=== PATIENT | male | born 1960 | race Caucasian/White ===

== ENCOUNTER 2019-06-28 20:05 | Inpatient (IN) | payer OTHER, SELFPAY ==
[2019-06-28] VITALS (8 sets, daily range): BP systolic 158–168; BP diastolic 86–101; PULSE 92–114; RESP 22–25; TEMP 36.4–37.2; O2SAT 99–100
--- NOTE | ~2019-06-28 | XR_ITS ---
XR chest port-a-cath/central 06/30/2019 12:24 Indication: PICC line placement Procedure: AP portable chest Comparison: 06/28/2019 Findings: Central venous catheter tip in the SVC. Moderate right pleural effusion. Right perihilar ai rspace disease. Left lung clear. Lung apices excluded on the left. There is a healed left clavicular fracture. Impression: 1: Right perihilar airspace disease which may represent atelectasis, asymmetric edema or pneumonia. 2: Moderate right pleural effusion. Reviewed, dictated and finalized at location A. OISOTOPE TECHNICIAN Impression: 1: Right perihilar airspace disease which may represent atelectasis, asymmetric edema or pneumonia. 2: Moderate right pleural effusion.
--- NOTE | ~2019-06-28 | US_ITS ---
US renal BI 07/01/2019 15:00 Procedure: Realtime transabdominal ultrasound of the kidneys and bladder. Indication: Renal failure. Status post left nephrectomy. Comparison: CT dated 08/09/2015 Findings: Right renal echotexture is normal without hydronephrosis, contour deforming mass or renal c alculus. Right kidney measures 12.3 cm in length. Left kidney is surgically absent. Bladder is well d istended. There is mild bladder wall thickening measuring 4.4 mm. Prostate gland measures 40 cc. Impression: 1: Mild bladder wall thickening. Consider cystitis in the appropriate clinical setting. Reviewed, dictated and finalized at location A. MACY SCHEDULER Impression: 1: Mild bladder wall thickening. Consider cystitis in the appropriate clinical setting.
--- NOTE | ~2019-06-28 | XR_ITS ---
EXAMINATION: XR chest 2V DATE: 06/28/2019 21:38 INDICATION: Shortness of breath, cough and weakness TECHNIQUE: frontal and lateral views of the chest were obtained. COMPARISON: Chest radiograph and CT abdomen and pelvis dated 06/24/2019 FINDINGS: Persistent moderate sized right pleural effusion. Pleural-based nodule at the lateral right midlung z one suspicious for metastatic disease. Left lung remains clear. No pneumothorax or left-sided pleural effusion. The cardiomediastinal silhouette is normal. Mild to moderate thoracic spondylosis. Old hea led left clavicle fracture deformity and old bilateral rib fractures. IMPRESSION: 1. Unchanged moderate sized right pleural effusion. 2. Pleural-based nodular opacity at the lateral right midlung zone which based on prior CT findings m ost concerning for metastatic disease. Reviewed, dictated and finalized at location A. CARGO GROUND OPERATIONS SUPERVISOR IMPRESSION: 1. Unchanged moderate sized right pleural effusion. 2. Pleural-based nodular opacity at the lateral right midlung zone which based on prior CT findings most concerning for metastatic disease.
--- NOTE | ~2019-06-28 | XR_ITS ---
EXAMINATION: XR chest port-a-cath/central DATE: 07/02/2019 13:46 INDICATION: Port placement. TECHNIQUE: A single frontal view of the chest was obtained. COMPARISON: Chest single view 07/01/2019 FINDINGS: There is a moderate-sized right pleural effusion. There are airspace opacities in right randell g with a basilar predominance, likely atelectasis. There is mild atelectasis at left lung base. No pn eumothorax. The heart size is normal. There is a right internal jugular port tip in superior vena cav a. A left internal jugular central venous catheter is seen with tip in the superior vena cava. There is an old healed fracture of left clavicle. IMPRESSION: 1. Port tip in superior vena cava. No pneumothorax. 2. Unchanged moderate-sized right pleural effusion. 3. Worsened airspace opacities in right lung and at left lung base, likely atelectasis. Reviewed, dictated and finalized at location A. TANCE ABUSE COUNSELOR IMPRESSION: 1. Port tip in superior vena cava. No pneumothorax. 2. Unchanged moderate-sized right pleural effusion. 3. Worsened airspace opacities in right lung and at left lung base, likely atel ectasis.
--- NOTE | ~2019-06-28 | US_ITS ---
EXAMINATION: US thoracentesis DATE: 07/01/2019 14:52 INDICATION: pleural effusion TECHNIQUE: The procedure and its risks, benefits, and alternatives were discussed with the patient. P otential risks discussed included bleeding, infection, and pneumothorax. The patient understood the r isks and agreed to proceed. The skin was prepped and draped in sterile fashion. 1% lidocaine was used for local anesthesia. Under ultrasound guidance, a 5 Fr catheter with trochar was advanced into the right pleural effusion. Fluid was aspirated. The catheter was removed, and a dressing was applied. Th ere were no immediate complications. FINDINGS: Ultrasound images demonstrate a right pleural effusion and the catheter within the fluid. IMPRESSION: 1. Successful ultrasound-guided thoracentesis yielding 1000 mL of serosanguineous fluid. Reviewed, dictated and finalized at location A. D SUPERVISOR IMPRESSION: 1. Successful ultrasound-guided thoracentesis yielding 1000 mL of serosanguine ous fluid.
--- NOTE | ~2019-06-28 | CT_ITS ---
EXAMINATION: CT chest wo con DATE: 06/30/2019 15:21 INDICATION: Confirm JACC line placement/Pulmonary congestion TECHNIQUE: Computed tomography (CT) of the chest was performed without intravenous contrast. Addition al 3D reconstructions utilizing coronal maximum intensity projection (MIP) were performed. Automated exposure control and iterative reconstruction technique were employed. The dose-length product was 17 1.89 mGy-cm. COMPARISON: 06/18/2019 FINDINGS: Left internal jugular central venous catheter with distal tip at the midsuperior vena cava. Interval increase in size of a now moderate to large right pleural effusion. Right middle and lower lobe colla pse and compressive atelectasis in the dependent right upper lobe. Multiple pleural-based nodules and masses along both the parietal and visceral pleura concerning for metastatic disease. There is a 1.8 x 1.3 cm perihilar mass at the posterior medial lingula. Mild dependent atelectasis in the left lowe r lobe. No pulmonary edema, pneumothorax or left-sided pleural effusion. Heart size is normal. No per icardial effusion. Atherosclerotic coronary artery calcification and likely stenting along the left a nterior descending coronary artery. Right paraspinal 8.0 x 5.3 x 1.7 cm intramuscular lipoma in the r ight trapezius muscle. Postoperative change of prior left nephrectomy and adrenalectomy. Moderate tho racic spondylosis. Several old healed left-sided rib fractures. No lytic or blastic bone lesions iden tified. IMPRESSION: 1. Left internal jugular central venous catheter with distal tip in the midsuperior vena cava. 2. Interval increase in size of a now moderate to large right pleural effusion with multiple right-si ded pleural-based nodules and masses consistent with metastatic disease. 3. 1.8 x 1.3 cm perihilar mass in the lingula also consistent with metastatic disease. Reviewed, dictated and finalized at location A. IDENT COLLEGE OR UNIVERSITY IMPRESSION: 1. Left internal jugular central venous catheter with distal tip in the midsupe rior vena cava. 2. Interval increase in size of a now moderate to large right pleural effusion with multiple right-sided pleural-based nodules and masses consistent with meta static disease. 3. 1.8 x 1.3 cm perihilar mass in the lingula also consistent with metastatic d isease.
--- NOTE | ~2019-06-28 | XR_ITS ---
EXAMINATION: XR chest 1V DATE: 07/01/2019 14:18 INDICATION: Right pleural effusion status post thoracentesis. TECHNIQUE: A single frontal view of the chest was obtained. COMPARISON: Chest single view 06/30/2019 FINDINGS: There is a moderate-sized right pleural effusion. There is a nodule in right midlung zone. No pneumothorax. The heart size is normal. A left internal jugular central venous catheter is seen wi th tip in the superior vena cava. There are old healed left rib fractures. IMPRESSION: 1. Moderate-sized right pleural effusion with improvement status post thoracentesis. 2. Nodule in right midlung zone, consistent with metastatic disease. Reviewed, dictated and finalized at location A. BALL CLUB MANAGER IMPRESSION: 1. Moderate-sized right pleural effusion with improvement status post thoracent esis. 2. Nodule in right midlung zone, consistent with metastatic disease.
--- NOTE | ~2019-06-28 | XR_ITS ---
. EXAMINATION: XR fl guide central line place DATE: 07/02/2019 13:11 INDICATION: Port placement. TECHNIQUE: A single intraoperative fluoroscopic view of the chest was obtained. I was not present. Fl uoroscopy exposure time is 28 seconds. COMPARISON: Chest single view 07/01/2019 FINDINGS: There is a right internal jugular port with tip not included, but at least to the superior vena cava. There is a left internal jugular central venous catheter with tip not included, but at joe st to the superior vena cava. IMPRESSION: 1. Right internal jugular port placement. Reviewed, dictated and finalized at location A. LACER
--- NOTE | 2019-06-28 20:31 | ECG_ITS ---
Measurements Intervals [place] Rate: 109 P: 33 GA: 132 QRS: -49 QRSD: 157 T: 125 QT: 381 QTc: 514 Interpretive Statements SINUS TACHYCARDIA LEFT AXIS DEVIATION LEFT BUNDLE BRANCH BLOCK BASELINE ARTIFACT- I, II, AVR ABNORMAL ECG Electronically Signed On 06-29-2019 6:56:49 [place] TANNER by Morris Webber D.O.
--- NOTE | 2019-06-28 21:05 | ED.GENADULT ---
HPI - General Adult General Chief complaint: Weakness Stated complaint: weak Time Seen by Provider: 06/28/19 20:57 Source: patient and RN notes reviewed Mode of arrival: EMS Limitations: no limitations History of Present Illness HPI narrative: Pt is a 58 y/o male who presents to the ED, via EMS, with c/o generalized weakness which began prior to arrival. Pt states he has been in and out of the hospital since 4 days ago. He reports dyspnea, BLE edema for 4 days, chest pain, and a productive cough, but denies a fever. Pt states he has been diagnosed with cancer and is seeing an oncologist at [facility] currently for a treatment plan. 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 He denies being on any anticoagulants, chemotherapy, or oxygen at home. Pt also reports a PMHx of blood clots. Location: lower extremity (generalized weakness) Radiation: non-radiation Associated symptoms: chest pain, cough (productive), shortness of breath and other (BLE edema) Related Data Allergies Allergy/AdvReac Type Severity Reaction Status Date / Time No Known Drug Allergies Allergy Unknown Verified 08/07/15 15:46 Review of Systems Review of Systems: Narrative: CONSTITUTIONAL: Reports generalized weakness. Denies a fever. CARDIOVASCULAR: Reports BLE edema and chest pain. RESPIRATORY: Reports productive cough. All systems reviewed & are unremarkable except as noted in HPI and below Genitourinary: Genitourinary: Denies hematuria and Denies urinary frequency Musculoskeletal: Musculoskeletal: Denies numbness Neurologic: Denies dizziness and Denies syncope REPLACED BY [facility] Past Medical History Medical History (Updated 06/29/19 @ 00:21 by Lily Petit MD) Anxiety and depression (Acute) CKD (chronic kidney disease) stage 4, GFR 15-29 ml/min (Acute) HTN (hypertension) (Acute) Renal cell carcinoma (Acute) Family History Family History (Updated 06/24/19 @ 09:48 by Leyla Puga RN) Father Cancer Mother Cancer Social History Social History (Updated 06/28/19 @ 21:35 by Ros Mchugh) Smoking status: Former smoker Tobacco type: cigarettes Smoking end date: 08/05/15 Gender identity (if verbalized by the patient): Male Comments PCP: Unknown Exam Narrative: Exam Narrative: GENERAL: Thin in appearance and frail. HEAD: Normocephalic, atraumatic. EYES: PERRLA and EOMI. ENT: Nares clear, no rhinorrhea or epistaxis. Dry mucous membranes. NECK: Supple. CHEST: Mild diffuse distension with coarse rhonchi and wheezing. Tachypnea. Nasal cannula in place. HEART: Tachycardic rate and rhythm. No murmur heard. Normal peripheral pulses. ABDOMEN: Soft, nontender, nondistended, normal active bowel sounds. EXTREMITIES: Normal range of motion. Bilateral lower extremity edema, pitting to mid shins, 2+ SKIN: Warm, dry, no rash. Skin is pale. NEURO: No focal deficits. Alert and oriented Course Vital Signs Vital signs: Vital Signs Temperature 36.8 C 06/28/19 20:09 Pulse Rate 114 H 06/28/19 20:09 Respiratory Rate 23 H 06/28/19 20:09 Blood Pressure 167/100 H 06/28/19 20:09 Pulse Oximetry 100 06/28/19 20:09 Temperature 36.4 C 06/28/19 23:49 Pulse Rate 95 06/28/19 23:55 Respiratory Rate 25 H 06/28/19 23:55 Blood Pressure 158/86 H 06/28/19 23:55 Pulse Oximetry 100 06/28/19 23:55 Medical Decision Making MDM Narrative Medical decision making narrative: Pt presented for evaluation of cough, weakness. Pt presents septic, no hypotension. IV access obtained and labs drawn. Pt given 1L of fluid as concerned for CHF concurrently given LE edema and history of cancer. Pt given broad spectrum antibiotics. He has a cancer history but reports he has not established with a heme/onc doctor yet. Pt without focal neurological deficits on exam. No headache. His labs are consistent with acute heart failure and also pneumonia given clinical symptoms. No lactic acidosis. He has CKD. BNP significantly eleva
[2019-06-28] MEDS: SODIUM CHLORIDE 0.9% IV 1,000 ML 999 ML IV CONT (21:41)
--- NOTE | 2019-06-28 22:11 | PC.NURSE ---
PATIENT REFUSED STRAIGHT CATH AT THIS TIME .
[2019-06-28 22:15] LABS: Basophils Absolute Auto 0.1 K/mm3 (0.0-0.1); Basophils Percent Auto 0.8 % (0.2-1.2); Eosinophils Absolute Auto 0.3 K/mm3 (0-0.3); Eosinophils Percent Auto 2.8 % (0-4.4); Hematocrit 35.8 % (42.0-52.0); Hemoglobin 10.5 g/dL (14.0-18.0); Immature Granulocyte Absolute 0.13 K/mm3 (0.00-0.031); Immature Granulocyte Percent A 1.3 % (0-0.5); Lymphocytes Absolute Auto 1.45 K/mm3 (0.9-3.2); Mean Corpuscular HGB Conc 29.3 g/dl (32-36); Mean Corpuscular Hemoglobin 25.2 pg (26-34); Mean Corpuscular Volume 86.1 fl (80-100); Mean Platelet Volume 8.4 fl (7.4-10.4); Monocytes Absolute Auto 1.1 K/mm3 (0.1-0.6); Monocytes Percent Auto 10.5 % (2.6-8.5); Neutrophils Absolute Auto 7.3 K/mm3 (1.3-6.7); Neutrophils Percent Auto 70.6 % (45.5-73.1); Platelet Count Result 404 k/mm3 (150-375); Red Blood Count 4.16 M/mm3 (4.6-6.20); Red Cell Distribution Width 20.8 % (11.5-14.5); White Blood Count 10.3 K/mm3 (4.5-10.0)
[2019-06-28 22:28] LABS: INR 2.1; Prothrombin Time 22.9 Seconds (11.1-14.7)
[2019-06-28 22:29] LABS: Partial Thromboplastin Time 75.9 SECONDS (22.3-36.8)
[2019-06-28 22:30] LABS: Lactic Acid Reflex 1.3 mmol/L (0.7-2.1)
[2019-06-28 22:36] LABS: NT Pro B Type Natriuretic Pept 20100 PG/ML (5-100)
[2019-06-28 22:38] LABS: Troponin I < 0.012 ng/mL (0.000-0.034)
[2019-06-28 22:42] LABS: Alanine Aminotransferase 10 U/L (4-50); Albumin Level 2.9 g/dL (3.5-5.1); Alkaline Phosphatase 118 U/L (38-126); Aspartate Amino Transferase 24 U/L (17-59); Bilirubin,Total 0.2 mg/dL (0.2-1.3); Blood Urea Nitrogen 26 mg/dL (9-20); Calcium 8.9 mg/dL (8.4-10.2); Carbon Dioxide 15 mmol/L (22-30); Chloride 112 mmol/L (98-107); Estimated CRCL calculation 23 ml/min; Estimated Glomerular Filt Rate 22; Glucose 120 mg/dL (75-110); Potassium 3.8 mmol/L (3.4-5.0); Sodium 139 mmol/L (137-145)
[2019-06-28 22:44] LABS: CRP 16.6 mg/dL (<1.0)
[2019-06-29] VITALS (20 sets, daily range): BP systolic 159–181; BP diastolic 82–98; PULSE 73–89; RESP 18–22; TEMP 36.4–36.7; O2SAT 96–100; BMI 23.0
--- NOTE | 2019-06-29 | ECHO_ITS ---
Patient Info Name: Andi Wharton Age: 58 years : 1960 Gender: Male Ht: 72 in Wt: 169 lbs BSA: 1.97 m2 HR: 89 bpm BP: 181 / 98 mmHg Heart Rhythm: Sinus Rhythm Technical Quality: Good Exam Date: 06/29/2019 7:20 AM Exam Location: [facility] Patient Status: Inpatient Admit Date: 06/28/2019 Staff Ordering Physician: Paloma Caldera DO Computing Architect: Elvis Daniel RDCS, RT Attending Provider: Paloma Caldera DO Referring Physician: Sunny Cochran MD; Exam Type: CA echo doppler color flow Study Info Indications I50.9 - Heart failure, unspecified Complete two-dimensional, color flow and Doppler transthoracic echocardiogram is performed with contrast to opacify the left ventricle and to improve the deliniation of the left ventricle endocardial borders. Summary 1. Left ventricular chamber dimension is normal. 2. Left ventricular systolic function is normal, estimated at 50-55%, measured 55%. 3. There is moderately increased left ventricular wall thickness. 4. Left ventricular septal wall motion is abnormal with septal motion related to bundle branch block. 5. The left ventricular diastolic function is grade I diastolic dysfunction. 6. Global longitudinal strain is moderately decreased at -12 %, suggesting early systolic dysfunction. 7. No pulmonary hypertension, estimated pulmonary arterial systolic pressure is 31 mmHg. 8. No significant valve disease. 9. Rhythm is NSR w/ BBB. Left Ventricle Left ventricular chamber dimension is normal. Left ventricular systolic function is normal, estimated at 50-55%, measured 55%. There is moderately increased left ventricular wall thickness. Left ventricular septal wall motion is abnormal with septal motion related to bundle branch block. The left ventricular diastolic function is grade I diastolic dysfunction. Global longitudinal strain is moderately decreased at -12 %, suggesting early systolic dysfunction. Right Ventricle Right ventricular chamber dimension is normal. Right ventricular systolic function is normal. Left Atria Left atrial chamber dimension is normal. Right Atria Right atrial chamber dimension is normal. Aortic Valve The aortic valve is trileaflet. There is no aortic valve sclerosis. There is no aortic valve stenosis. There is no aortic valve regurgitation. Pulmonic Valve The pulmonic valve is normal. There is no pulmonic valve stenosis. There is no pulmonic regurgitation. Mitral Valve The mitral valve has normal leaflets. There is no mitral valve stenosis. There is no mitral valve regurgitation. Tricuspid Valve The tricuspid valve leaflets are normal. There is no significant tricuspid valve stenosis. There is trace tricuspid valve regurgitation. No pulmonary hypertension, estimated pulmonary arterial systolic pressure is 31 mmHg. Pericardium/Pleural The pericardium appears normal. There is no pericardial effusion. Inferior Vena Cava Normal inferior vena cava with >50% collapse upon inspiration consistent with Empty right atrial pressure, 10 mmHg. Aorta The aortic root size at the sinus of Valsalva is normal. The prox ascending aorta size is normal. Left Ventricular Outflow Tract Name Value Normal LVOT 2D
--- NOTE | 2019-06-29 00:09 | ADMGEN ---
This patient, Andi Wharton, was admitted to Medical Room 248-01. Patient/family oriented to hospital policies and general routines including ID bracelet, bed and alarms, visiting hours, pain management, procedures, bathroom and other care routines, personal items, smoking policy, room service/diet, and visiting hours. Valuables list has been completed. Information on how to activate the Rapid Response Team has been discussed. Patient/Family are encouraged to report perceived risks to care and to ask questions if they do not understand what they are told or what they should do.
[2019-06-29] MEDS: METOPROLOL TARTRATE INJ 5 MG/5 ML VIAL IV PUSH (05:13)
[2019-06-29 07:21] LABS: Add Urine Microscopic? NO; Appearance Urine Clear (Clear); Bilirubin Urine Negative (Negative); Blood Urine Negative (Negative); Color Urine Yellow (Yellow); Glucose Urine UA Negative (Negative); Ketones Urine Negative (Negative); Leukocyte Esterase Ur Negative LEU/UL (NEGATIVE); Nitrate Urine Negative (Negative); Protein Urine Negative (Negative); Specific Grav Ur 1.013 (1.001-1.035); Urobilinogen Urine Negative mg/dL (<2.0)
[2019-06-29 08:17] LABS: INR 2.5; Prothrombin Time 26.2 Seconds (11.1-14.7)
[2019-06-29 08:18] LABS: Basophils Absolute Auto 0.1 K/mm3 (0.0-0.1); Basophils Percent Auto 1.4 % (0.2-1.2); Eosinophils Absolute Auto 0.3 K/mm3 (0-0.3); Eosinophils Percent Auto 3.4 % (0-4.4); Hematocrit 36.9 % (42.0-52.0); Hemoglobin 10.2 g/dL (14.0-18.0); Immature Granulocyte Absolute 0.07 K/mm3 (0.00-0.031); Lymphocytes Absolute Auto 1.25 K/mm3 (0.9-3.2); Lymphocytes Percent Auto 17.1 % (18.3-44.2); Mean Corpuscular HGB Conc 27.6 g/dl (32-36); Mean Corpuscular Hemoglobin 25.8 pg (26-34); Mean Corpuscular Volume 93.2 fl (80-100); Mean Platelet Volume 8.5 fl (7.4-10.4); Monocytes Absolute Auto 0.7 K/mm3 (0.1-0.6); Neutrophils Absolute Auto 4.9 K/mm3 (1.3-6.7); Neutrophils Percent Auto 67.1 % (45.5-73.1); Partial Thromboplastin Time 59.2 SECONDS (22.3-36.8); Platelet Count Result 274 k/mm3 (150-375); Red Blood Count 3.96 M/mm3 (4.6-6.20); Red Cell Distribution Width 21.6 % (11.5-14.5); White Blood Count 7.3 K/mm3 (4.5-10.0)
[2019-06-29 08:20] LABS: Alanine Aminotransferase 7 U/L (4-50); Albumin Level 2.7 g/dL (3.5-5.1); Alkaline Phosphatase 107 U/L (38-126); Aspartate Amino Transferase 22 U/L (17-59); Bilirubin,Total 0.2 mg/dL (0.2-1.3); Blood Urea Nitrogen 24 mg/dL (9-20); Calcium 8.6 mg/dL (8.4-10.2); Carbon Dioxide 12 mmol/L (22-30); Chloride 114 mmol/L (98-107); Estimated CRCL calculation 30 ml/min; Estimated Glomerular Filt Rate 24; Glucose 99 mg/dL (75-110); Potassium 4.2 mmol/L (3.4-5.0); Sodium 137 mmol/L (137-145)
[2019-06-29 08:33] LABS: Anisocytosis 1+ (NORMAL); Platelet Estimate Adequate (Adequate)
--- NOTE | 2019-06-29 08:42 | PM.IMHP ---
H&P: HPI History of Present Illness Chief complaint: CHF exacerbation,metastatic cancer Narrative: Andi Wharton is a 58 year old male with a past medical history of CHF, renal carcinoma s/p nephrectomy at [facility] last year who presented to the ER after having reports of worsening shortness of breath and increased dizziness. He was recently at [facility] for 4 days and was discharged on 06/25/19. Records have been requested. Per notes seen in the chart from 06/25/19 at [facility], he was diagnosed with a PE via VQ scan and was started on Warfarin. It is unclear on what dose he is on and after speaking with his pharmacy ([facility] in [place]), he was not discharged on Warfarin. He was diagnosed with renal cell carcinoma last year and also had a nephrectomy at [facility]. He denies ever following up with an oncologist and it is difficult to determine why he did not. His chest x-ray showed chest x-ray showed an unchanged moderate pleural effusion and a pleural based nodule lateral right midlung zone which based on prior CT findings most concerning for metastatic disease. Per [facility]'s notes, a CT has showed that the cancer has metastasized. He has also reportedly had a 100 lb weight loss in the past 4 months. While admitted at [facility], an appointment was made for the patient with an oncologist, Dr. Llanos for yesterday on 06/28/19, but he presented to our ER instead. Patient was discharged with home health and required O2 on discharge. Dr. Zhao has been consulted and will wait for his recommendations before deciding if the patient needs to be seen by cardiology and nephrology. Due to his cancer metastasizing, increased weakness, and 100 lb weight loss, he would be appropriate for palliative/hospice care which was discussed with the patient. At this time, he would like to see what Dr. Zhao's recommendations are and then will speak with his son. He did decided to change his Code Status to a DNR. He designated his son Elieser Wharton ([phone]) as his surrogate decision maker. I spoke with his son and he reports that his dad goes to different hospitals a few times a year, but never follows up with any physicians as he is instructed. Per his son, the patient has rapidly declined. Review of Systems Review of Systems: Narrative: REVIEW OF SYSTEMS: General: Denies pain, fever, chills. HEENT: Denies congestion, sore throat. Respiratory: Reports: SOB with exertion. Denies hemoptysis, SOB at rest, wheezing. Cardiology: Reports: Edema, lightheadeness. Denies: Chest pain, diaphoresis, palpitations. Gastrointestinal: Denies: Nausea, vomiting, constipation, diarrhea, abdominal pain. Genitourinary: Denies: Burning, hematuria. Integumentary: Reports: No symptoms Musculoskeletal: Reports: Generalized weakness Neurology: Reports: Dizziness Psychiatric: Reports: Anxiety and depression. ROS Comment: Except as documented, all other systems reviewed and negative. [facility] Past Medical History Medical History (Updated 06/29/19 @ 16:41 by KRYSTAL Ge) Acute exacerbation of CHF (congestive heart failure) (Acute) Anxiety and depression (Acute) CKD (chronic kidney disease) stage 4, GFR 15-29 ml/min (Acute) HTN (hypertension) (Acute) Renal cell carcinoma (Acute) Surgical History Surgical History (Updated 06/29/19 @ 10:24 by KRYSTAL Ge) History of nephrectomy (Acute) Family History Family History (Updated 06/29/19 @ 00:27 by Patt Hayes RN) Father Acute myocardial infarction Cancer Chronic obstructive pulmonary disease Mother Acute myocardial infarction Cancer Diabetes mellitus Sibling Cerebrovascular accident Diabetes mellitus Social History Social History (Updated 06/29/19 @ 10:29 by KRYSTAL Ge) Smoking packs per day: 1 Smoking cigarettes per day: 20.0 Years smoked: 40 Smoking pack-years: 40.00 Smoking status: Former smoker Tobacco type: cigarettes Smoking end da
[2019-06-29] MEDS: ASPIRIN 81 MG CHEWABLE TABLET PO (09:22)
[2019-06-29] MEDS: PANTOPRAZOLE 40 MG TABLET PO (09:23)
[2019-06-29] MEDS: METOPROLOL TARTRATE 50 MG TAB PO ×2 (09:23→20:39)
[2019-06-29] MEDS: ALPRAZOLAM 0.5 MG TABLET 1 MG PO (10:32)
[2019-06-29] MEDS: POLYSACCHARIDE IRON COMPLEX 150 MG CAPSULE PO (10:33)
[2019-06-29] MEDS: ALBUMIN HUMAN 25% 12.5 GM/50ML 50 ML IVPB (10:34)
[2019-06-29] MEDS: FUROSEMIDE INJ 40 MG/4 ML VIAL 20 MG IV PUSH (12:22)
[2019-06-29] MEDS: ALBUTEROL SULFATE NEB 2.5 MG/0.5 ML INH INHALATION ×2 (15:23→20:01)
[2019-06-29] MEDS: IPRATROPIUM BR 0.02% INH SOLN 0.5 MG/2.5 ML VIAL INHALATION ×2 (15:24→20:01)
--- NOTE | 2019-06-29 19:38 | CONS_ITS ---
DATE OF CONSULTATION: 06/29/2019 REFERRING PHYSICIAN: Paloma Caldera D.O. REASON FOR CONSULTATION: Metastatic renal cell carcinoma. HISTORY OF PRESENTING ILLNESS: This is a pleasant 58-year-old male who was diagnosed to have renal cell carcinoma, status post nephrectomy done in June 2018. The patient did not keep followup with the surgeon. He now has been losing weight and lost almost 100 pound in last 4 months duration. He has been complaining of poor appetite. He has been having some lightheadedness and dizziness with occasional headache without any seizures. He was admitted to [facility] with increasing shortness of breath and dizziness. CT scan was performed over there and according to the chart review, he was found to have lung and liver metastasis. I do not see CT report for my review. The patient denies any bleeding and bruising. Denies any diarrhea and constipation. He has been having swelling in the bilateral lower extremities with difficulty walking. He was set to be seen by Dr. Llanos for oncology consultation, but ended up admitting into the hospital. REVIEW OF SYSTEMS: As per HPI, otherwise negative. 12-point review of system was reviewed. PAST MEDICAL HISTORY: Renal cell carcinoma, status post nephrectomy in June 2018, congestive heart failure, depression, anxiety, chronic kidney stage 4 disease, hypertension. PAST SURGICAL HISTORY: Status post nephrectomy. FAMILY HISTORY: Positive for COPD and heart disease in father and mother. No history of malignancy. SOCIAL HISTORY: The patient smokes 1 pack per day for 40 years duration, quit in January 2018. The patient used to drink 1 whiskey and beers on a daily basis, but quit again last year. 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 He has not been working for the last 1 year duration since the diagnosis of kidney cancer. HOME MEDICATIONS: Reviewed. ALLERGIES: REVIEWED. PHYSICAL EXAMINATION: GENERAL: This patient is a quite tired looking male, in no apparent distress. Alert and oriented x3. VITAL SIGNS: Per nursing note. HEENT: Normocephalic, atraumatic. Clear oropharynx. LUNGS: Clear to auscultation bilaterally. CARDIOVASCULAR: Regular rate and rhythm. No murmurs. ABDOMEN: Soft, nontender, nondistended. Bowel sounds are positive in all 4 quadrants. No hepatosplenomegaly. EXTREMITIES: 2+ bilateral pitting edema. NEUROLOGIC: Grossly intact. LABORATORY DATA: WBC 7.3, hemoglobin 10.2, platelet 274,000. INR 2.5. Creatinine 2.7, total protein 6.0. ASSESSMENT AND PLAN: Metastatic renal cell carcinoma. The patient was initially diagnosed to have early stage cancer and had nephrectomy done at [facility] in June 2018. According to the chart review, the patient was found to have lung and liver metastasis on the CT scan performed at [facility]. Chest x-ray was done here that showed unchanged moderate-sized pleural effusion and pleural based nodular density in the mid lung zone. This is concerning for metastatic disease. I have discussed this finding with the patient in detail. The patient is a 58-year-old unfortunate man with metastatic disease. I plan to perform a PET-CT upon discharge. In the meantime, I will ask Dr. Chavira for MediPort placement for immunotherapy treatment hopefully soon as an outpatient. My plan will be to start him on immunotherapy with ipilimumab and nivolumab as an outpatient. I have discussed all these in detail with the patient. The patient will follow up with me in my office. I have provided him my office information. Terra I MT: Viridiana
[2019-06-29] MEDS: MIRTAZAPINE 15 MG TABLET PO (20:40)
[2019-06-29] MEDS: TEMAZEPAM 15 MG CAPSULE PO (20:40)
[2019-06-29] MEDS: ALPRAZOLAM 0.5 MG TABLET PO (20:44)
[2019-06-30] VITALS (20 sets, daily range): BP systolic 145–161; BP diastolic 79–91; PULSE 74–92; RESP 18–24; TEMP 36.2–36.3; O2SAT 93–100
[2019-06-30] MEDS: ALBUTEROL SULFATE NEB 2.5 MG/0.5 ML INH INHALATION ×4 (02:18→21:47)
[2019-06-30] MEDS: IPRATROPIUM BR 0.02% INH SOLN 0.5 MG/2.5 ML VIAL INHALATION ×4 (02:18→21:47)
[2019-06-30 06:04] LABS: Basophils Absolute Auto 0.1 K/mm3 (0.0-0.1); Eosinophils Absolute Auto 0.4 K/mm3 (0-0.3); Eosinophils Percent Auto 3.9 % (0-4.4); Hematocrit 30.3 % (42.0-52.0); Immature Granulocyte Absolute 0.13 K/mm3 (0.00-0.031); Immature Granulocyte Percent A 1.4 % (0-0.5); Lymphocytes Absolute Auto 1.38 K/mm3 (0.9-3.2); Lymphocytes Percent Auto 14.8 % (18.3-44.2); Mean Corpuscular HGB Conc 29.7 g/dl (32-36); Mean Corpuscular Hemoglobin 25.1 pg (26-34); Mean Corpuscular Volume 84.4 fl (80-100); Mean Platelet Volume 8.8 fl (7.4-10.4); Monocytes Absolute Auto 0.8 K/mm3 (0.1-0.6); Monocytes Percent Auto 8.3 % (2.6-8.5); Neutrophils Absolute Auto 6.6 K/mm3 (1.3-6.7); Neutrophils Percent Auto 70.6 % (45.5-73.1); Platelet Count Result 350 k/mm3 (150-375); Red Blood Count 3.59 M/mm3 (4.6-6.20); Red Cell Distribution Width 20.5 % (11.5-14.5); White Blood Count 9.3 K/mm3 (4.5-10.0)
[2019-06-30 06:10] LABS: INR 2.3; Prothrombin Time 25.1 Seconds (11.1-14.7)
[2019-06-30 06:11] LABS: Partial Thromboplastin Time 73.7 SECONDS (22.3-36.8)
[2019-06-30 06:21] LABS: Alanine Aminotransferase 10 U/L (4-50); Albumin Level 2.7 g/dL (3.5-5.1); Alkaline Phosphatase 100 U/L (38-126); Aspartate Amino Transferase 18 U/L (17-59); Bilirubin,Total 0.2 mg/dL (0.2-1.3); Blood Urea Nitrogen 27 mg/dL (9-20); Calcium 8.6 mg/dL (8.4-10.2); Carbon Dioxide 15 mmol/L (22-30); Chloride 110 mmol/L (98-107); Estimated CRCL calculation 28 ml/min; Estimated Glomerular Filt Rate 22; Glucose 130 mg/dL (75-110); Potassium 3.9 mmol/L (3.4-5.0); Sodium 136 mmol/L (137-145)
[2019-06-30] MEDS: POLYSACCHARIDE IRON COMPLEX 150 MG CAPSULE PO (08:40)
[2019-06-30] MEDS: PANTOPRAZOLE 40 MG TABLET PO (08:41)
[2019-06-30] MEDS: METOPROLOL TARTRATE 50 MG TAB PO ×2 (08:41→20:39)
[2019-06-30] MEDS: ASPIRIN 81 MG CHEWABLE TABLET PO (08:41)
--- NOTE | 2019-06-30 09:36 | PM.IMPN ---
Progress Note: A&P Assessment and Plan (1) Pleural effusion: Code(s): J90 - Pleural effusion, not elsewhere classified Status: Acute Assessment and Plan: 06/30/19: Patient's chest x-ray showed 1: Right perihilar airspace disease which may represent atelectasis, asymmetric edema or pneumonia. 2: Moderate right pleural effusion. A CT of his chest without contrast was ordered and showed 1. Left internal jugular central venous catheter with distal tip in the midsuperior vena cava. 2. Interval increase in size of a now moderate to large right pleural effusion with multiple right-sided pleural-based nodules and masses consistent with metastatic disease. 3. 1.8 x 1.3 cm perihilar mass in the lingula also consistent with metastatic disease. Will plan to hold his Warfarin tonight and order an ultrasound guided thoracentensis for tomorrow morning. His INR is 2.3 and per radiology, it needs to be around 1.5. Will keep him NPO at midnight and repeat PT/INR in the am. This was all explained to the patient in great detail and that the fluid will most likely return. He stated understanding and would like to proceed. (2) Acute exacerbation of CHF (congestive heart failure): Qualifiers: Heart failure type: unspecified Qualified Code(s): I50.9 - Heart failure, unspecified Code(s): I50.9 - Heart failure, unspecified Status: Acute Assessment and Plan: 06/29/19: BNP is noted to be 20,100. He is on Lasix 20 mg PO daily and has 3-4+ lower extremity pitting edema. Will plan to give the patient IV Lasix X 1 and albumin today. An echo from May shows and EF of 35-40%. Will plan to continue his Metoprolol and consider a cardiology consult in the morning depending on how aggressive the patient wants his treatment to be. 06/30/19: Patient's echocardiogram showed an EF of 50-55% with Grade 1 Diastolic heart failure. His lower extremity edema has improved and will resume Lasix 20 mg daily until seen by nephrology. (3) Respiratory distress, acute: Code(s): R06.03 - Acute respiratory distress Status: Acute Assessment and Plan: 06/29/19: Patient reports that he was discharged from [facility] on 06/25/19. Per the notes, he was discharged with home health as well as Home O2. Per the patient he never did receive the O2. His lung sounds are course, but his chest x-ray showed an unchanged moderate pleural effusion and a pleural based nodule lateral right midlung zone which based on prior CT findings most concerning for metastatic disease. He is on 2L of O2 and his CO2 is noted to be 12. On 06/25/19 it was 15, will repeat labs in the am. 06/30/19: Patient's O2 saturation has been stable on 2L. Will plan to do a CT of his chest due to his worsening congestion. Per the notes at [facility], the patient was treated recently with Rocephin and Azithromycin. (4) Renal cell carcinoma: Qualifiers: Laterality: unspecified laterality Qualified Code(s): C64.9 - Malignant neoplasm of unspecified kidney, except renal pelvis Code(s): C64.9 - Malignant neoplasm of unspecified kidney, except renal pelvis Status: Acute Assessment and Plan: 06/29/19: Patient has nephrectomy last year at [place]. He never followed up as an outpatient. He was scheduled to have an appointment with Dr. Llanos on 06/28/19, but did not make it to the appointment due to being here. Dr. Zhao was consulted in the ER. 06/30/19: Dr. Zhao is planning on seeing him as an outpatient and getting a PET scan and then starting immunotherapy. Originally, a port was going to be placed, but Dr. Chavira and Dr. Zhao have discussed waiting until he is being followed up as an outpatient and for now will have a JACC line placed. (5) CKD (chronic kidney disease) stage 4, GFR 15-29 ml/min: Code(s): N18.4 - Chronic kidney disease, stage 4 (severe) Status: Acute Assessment and Plan: 06/29/19: BUN 24 and Creatinine is 2.70. Th
[2019-06-30] MEDS: ALPRAZOLAM 0.5 MG TABLET PO ×3 (10:00→20:38)
--- NOTE | 2019-06-30 17:17 | PCRCNOTE ---
Window of time for administration has passed. See next scheduled administration.
--- NOTE | 2019-06-30 17:22 | PM.CNNEP ---
Assessment and Plan Assessment and plan (1) CKD (chronic kidney disease) stage 4, GFR 15-29 ml/min: Code(s): N18.4 - Chronic kidney disease, stage 4 (severe) Status: Acute (2) HTN (hypertension): Qualifiers: Hypertension type: essential hypertension Qualified Code(s): I10 - Essential (primary) hypertension Code(s): I10 - Essential (primary) hypertension Status: Acute (3) Anemia: Qualifiers: Anemia type: unspecified type Qualified Code(s): D64.9 - Anemia, unspecified Code(s): D64.9 - Anemia, unspecified Status: Acute Assessment and Plan: The patient has chronic kidney disease. Most likely this is because he is missing 1 kidney. He does have hypertension and does have a history of congestive heart failure and so these to could be contributing to his kidney dysfunction. Will get a renal ultrasound to make sure there is no obstruction. Will also get urine electrolytes. At this point I do not we do think we need to do a substantial evaluation concerning this because his urine sediment is bland and the things we would look for would not be likely to be present and would not be treatable in light of his metastatic cancer anyway. (4) Acute exacerbation of CHF (congestive heart failure): Qualifiers: Heart failure type: unspecified Qualified Code(s): I50.9 - Heart failure, unspecified Code(s): I50.9 - Heart failure, unspecified Status: Acute Assessment and Plan: The patient has a diagnosis of congestive heart failure. His echocardiogram shows normal LV function but there is some diastolic dysfunction. The patient has pleural effusions and edema. His albumin could be contributing to this. We can also check a urine protein to be sure that this isn't contributing to the fluid issues. (5) Renal cell carcinoma: Qualifiers: Laterality: unspecified laterality Qualified Code(s): C64.9 - Malignant neoplasm of unspecified kidney, except renal pelvis Code(s): C64.9 - Malignant neoplasm of unspecified kidney, except renal pelvis Status: Acute Assessment and Plan: Nephrectomy has been done. Hematology is on the case and deciding how to approach the metastatic aspect. (6) Anorexia: Code(s): R63.0 - Anorexia Status: Acute Assessment and Plan: He lost 100 pounds over the last few months. He has nausea and poor appetite. I do not think this is from uremia. He has anemia and nausea. He has a past history of an ulcer. Perhaps he has a recurrent case of this. History of Present Illness Chief Complaint Chief complaint: CHF exacerbation,metastatic cancer History of Present Illness Narrative: Andi is a very pleasant 58-year-old gentleman who has renal cell carcinoma, hypertension, chronic kidney disease, anxiety, congestive heart failure, recent pulmonary embolism, who came into the hospital because of shortness of breath. A few days ago the patient was in the emergency room at [facility] and was diagnosed with a pulmonary embolism. They did a CT scan and it also showed metastatic cancer probably from the renal cell carcinoma. They did some blood work showing that his creatinine was 2.66. After discharge he became more short of breath so came to this emergency room. He was evaluated in this emergency room and found to have congestive heart failure. He was admitted. He has been given diuretics. He mentions that he had 100 pound weight loss in the last few months. He has had nausea and poor appetite. He denies black or bloody stools. It was noted that his creatinine was elevated so renal consultation was requested. The patient was diagnosed with renal cell carcinoma 1 year ago. He saw Urology and they did a nephrectomy. It is not clear what his creatinine had been running between the nephrectomy and these last 2 hospitalizations. He has not had any symptoms of kidney d
[2019-06-30] MEDS: PHYTONADIONE INJ 10 MG/ML AMP 2.5 MG IM (17:40)
--- NOTE | 2019-06-30 18:03 | P.PNONC_ITS ---
Progress Note: A/P - Additional Plan Metastatic renal cell carcinoma status post nephrectomy. PET scan will be done as an outpatient. Palliative immunotherapy will be started hopefully next 7 days as an outpatient. Patient can be discharged home after the thoracentesis the morning. IV site has been established. Case discussed with Dr. Chavira. Right-sided pleural effusion. Likely malignant. Patient is going to have thoracentesis tomorrow. Pulmonary embolism. Patient is on Coumadin. We will prefer factor Xa inhibitors once approved by the insurance. - Time Spent With Patient Total time spent is greater than 50% in coordination of care (as documented) at patient's floor/unit and/or counseling patient: 15 - 25 minutes Subjective Interval history: Patient remains short of breath. He denies any chest pain. Patient is eating better. Denies any bone pain. Review of Systems - Review of Systems Patient complained of shortness of breath and exertion. Denies any chest pain. Denies any nausea or vomiting. He has been eating better. No other new complaints today. - Neurologic Reports system reviewed and no additional complaints, except as documented, Denies syncope, Denies numbness Exam Vital signs: Temp Pulse Resp BP Pulse Ox 36.3 C L 84 20 150/84 H 99 06/30/19 16:00 06/30/19 16:00 06/30/19 16:00 06/30/19 16:00 06/30/19 16:00 Lungs decreased breath sounds right base no wheezes Cardiovascular regular rate rhythm no murmurs Abdomen soft nontender nondistended Extremities bilateral pitting edema PN: Objective Data - Labs CBC & Chem 7: 06/30/19 05:15 06/30/19 05:15 Labs: Laboratory Results - last 24 hr 06/30/19 06/30/19 06/30/19 05:15 05:15 05:15 WBC 9.3 RBC 3.59 L Hgb 9.0 L Hct 30.3 L MCV 84.4 D MCH 25.1 L MCHC 29.7 L RDW 20.5 H Plt Count 350 MPV 8.8 Immature Gran % (Auto) 1.4 H Neut % (Auto) 70.6 Lymph % (Auto) 14.8 L [place] % (Auto) 8.3 Eos % (Auto) 3.9 Baso % (Auto) 1.0 Lymph # (Auto) 1.38 [place] # (Auto) 0.8 H Eos # (Auto) 0.4 H Baso # (Auto) 0.1 Abs Immat Gran (auto) 0.13 H Absolute Neuts (auto) 6.6 Absolute Nucleated RBC 0.0 Nucleated RBC % 0.0 PT 25.1 H INR 2.3 APTT 73.7 H Sodium 136 L Potassium 3.9 Chloride 110 H Carbon Dioxide 15 L BUN 27 H Creatinine 2.90 H Estim Creat Clear Calc 28 Estimated GFR 22 L Glucose 130 H Calcium 8.6 Total Bilirubin 0.2 AST 18 ALT 10 Alkaline Phosphatase 100 Total Protein 6.0 L Albumin 2.7 L
[2019-06-30] MEDS: TEMAZEPAM 15 MG CAPSULE PO (20:39)
[2019-06-30] MEDS: MIRTAZAPINE 15 MG TABLET PO (20:40)
[2019-06-30 21:33] LABS: Creatinine Urine 119.5 mg/dL
[2019-06-30 21:35] LABS: Sodium Urine Random 73 meq/L
[2019-06-30] MEDS: DORNASE ALFA INH SOLN 1 MG/ML 2.5 ML AMP 2.5 MG INHALATION (21:48)
[2019-06-30 21:50] LABS: Total Protein Urine Random 49 mg/dL
[2019-07-01] VITALS (17 sets, daily range): BP systolic 143–149; BP diastolic 77–91; PULSE 72–95; RESP 16–22; TEMP 36.4–36.7; O2SAT 92–99
[2019-07-01] MEDS: IPRATROPIUM BR 0.02% INH SOLN 0.5 MG/2.5 ML VIAL INHALATION ×4 (02:30→19:56)
[2019-07-01] MEDS: ALBUTEROL SULFATE NEB 2.5 MG/0.5 ML INH INHALATION ×4 (02:30→19:55)
[2019-07-01 05:18] LABS: Basophils Absolute Auto 0.1 K/mm3 (0.0-0.1); Basophils Percent Auto 0.8 % (0.2-1.2); Eosinophils Absolute Auto 0.3 K/mm3 (0-0.3); Eosinophils Percent Auto 3.6 % (0-4.4); Hemoglobin 8.4 g/dL (14.0-18.0); Immature Granulocyte Absolute 0.12 K/mm3 (0.00-0.031); Immature Granulocyte Percent A 1.4 % (0-0.5); Lymphocytes Absolute Auto 1.54 K/mm3 (0.9-3.2); Lymphocytes Percent Auto 17.9 % (18.3-44.2); Mean Corpuscular Hemoglobin 25.8 pg (26-34); Mean Corpuscular Volume 86.2 fl (80-100); Monocytes Absolute Auto 0.6 K/mm3 (0.1-0.6); Monocytes Percent Auto 7.5 % (2.6-8.5); Neutrophils Absolute Auto 5.9 K/mm3 (1.3-6.7); Neutrophils Percent Auto 68.8 % (45.5-73.1); Platelet Count Result 297 k/mm3 (150-375); Red Blood Count 3.25 M/mm3 (4.6-6.20); Red Cell Distribution Width 20.7 % (11.5-14.5); White Blood Count 8.6 K/mm3 (4.5-10.0)
[2019-07-01 05:28] LABS: Albumin Level 2.6 g/dL (3.5-5.1); Blood Urea Nitrogen 29 mg/dL (9-20); Calcium 8.4 mg/dL (8.4-10.2); Carbon Dioxide 18 mmol/L (22-30); Chloride 111 mmol/L (98-107); Estimated CRCL calculation 29 ml/min; Estimated Glomerular Filt Rate 23; Glucose 102 mg/dL (75-110); Phosphorus 3.5 mg/dL (2.5-4.5); Potassium 4.2 mmol/L (3.4-5.0); Prothrombin Time 21.8 Seconds (11.1-14.7); Sodium 137 mmol/L (137-145)
[2019-07-01 05:29] LABS: Partial Thromboplastin Time 64.6 SECONDS (22.3-36.8)
--- NOTE | 2019-07-01 06:59 | PM.PNNEP ---
Progress Note: A&P Assessment and Plan (1) CKD (chronic kidney disease) stage 4, GFR 15-29 ml/min: Code(s): N18.4 - Chronic kidney disease, stage 4 (severe) Status: Acute (2) HTN (hypertension): Qualifiers: Hypertension type: essential hypertension Qualified Code(s): I10 - Essential (primary) hypertension Code(s): I10 - Essential (primary) hypertension Status: Acute (3) Anemia: Qualifiers: Anemia type: unspecified type Qualified Code(s): D64.9 - Anemia, unspecified Code(s): D64.9 - Anemia, unspecified Status: Acute Assessment and Plan: The patient has chronic kidney disease. Due to hypertension and nephrectomy. Urine sodium is not low. 24 hour urine creatinine is in process. He has low muscle mass and so his serum creatinine may under estimate the degree of renal insufficiency. (4) Acute exacerbation of CHF (congestive heart failure): Qualifiers: Heart failure type: unspecified Qualified Code(s): I50.9 - Heart failure, unspecified Code(s): I50.9 - Heart failure, unspecified Status: Acute Assessment and Plan: The patient has a diagnosis of congestive heart failure. His echocardiogram shows normal LV function but there is some diastolic dysfunction. The patient has pleural effusions and edema. His albumin could be contributing to this. (5) Renal cell carcinoma: Qualifiers: Laterality: unspecified laterality Qualified Code(s): C64.9 - Malignant neoplasm of unspecified kidney, except renal pelvis Code(s): C64.9 - Malignant neoplasm of unspecified kidney, except renal pelvis Status: Acute Assessment and Plan: Nephrectomy has been done. Hematology is on the case and deciding how to approach the metastatic aspect. (6) Anorexia: Code(s): R63.0 - Anorexia Status: Acute Assessment and Plan: He lost 100 pounds over the last few months. He has nausea and poor appetite. I do not think this is from uremia judging by the creatinine, however with his poor muscle mass his GFR may be lower than his creatinine Pedicts. 24 hour urine creatinine is pending. He is on pantoprazole Subjective Interval history: Patient is feeling about the same. He is thirsty because he is NPO for a procedure today. He slept okay last night. Review of Systems Cardiovascular: Cardiovascular: Reports no additional cardiovascular complaints Respiratory: Respiratory: Reports no additional respiratory complaints Gastrointestinal: Gastrointestinal: Reports no additional gastrointestinal complaints Genitourinary: Genitourinary: Reports no additional male genitourinary complaints Exam Narrative: Exam Narrative: Well developed well-nourished in no acute distress Lungs decreased breath sounds at the bases Heart regular without rub Abdomen bowel sounds positive soft nontender Extremities 1+ edema Skin no rash Objective Data Vital Signs Vital Signs: Vital Signs - 24 hr 06/30/19 07:53 06/30/19 07:55 06/30/19 08:00 Temperature 36.2 C L Pulse Rate 74 75 Respiratory Rate 20 18 Blood Pressure 161/84 H Pulse Oximetry 93 L 96 06/30/19 08:04 06/30/19 08:41 06/30/19 12:00 Temperature Pulse Rate 76 76 75 Respiratory Rate 20 Blood Pressure Pulse Oximetry 06/30/19 14:43 06/30/19 14:54 06/30/19 16:00 Temperature 36.3 C L Pulse Rate 92 80 84 Respiratory Rate 20 20 20 Blood Pressure 150/84 H Pulse Oximetry 99 06/30/19 17:54 06/30/19 20:35 06/30/19 20:39 Temperature 36.2 C L Pulse Rate 81 83 81 Respiratory Rate 22 H Blood Pressure 146/79 H Pulse Oximetry 100 06/30/19 21:57 06/30/19 22:00 06/30/19 22:02 Temperature 36.2 C L Pulse Rate 84 86 84 Respiratory Rate 20 24 H 18 Blood Pressure 145/91 H Pulse Oximetry 100 97 06/30/19 22:07 07/01/19 00:00 07/01/19 02:31 Temperature Pulse Rate 87 77 74 Respiratory Rate
--- NOTE | 2019-07-01 07:11 | PM.EVENT ---
Event Note Event Note: Addendum: Patient's hemoglobin is dropping. We will check stool guaiacs.
[2019-07-01] MEDS: PHYTONADIONE INJ 10 MG/ML AMP 5 MG IM (07:35)
--- NOTE | 2019-07-01 08:00 | PC.NURSE ---
Patient OK to get medications with a sip of water this morning. Hold aspirin until after procedure. This is Per Janeth Goins NP.
--- NOTE | 2019-07-01 08:56 | PM.IMPN ---
Progress Note: A&P Assessment and Plan (1) Pleural effusion: Code(s): J90 - Pleural effusion, not elsewhere classified Status: Acute Assessment and Plan: 06/30/19: Patient's chest x-ray showed 1: Right perihilar airspace disease which may represent atelectasis, asymmetric edema or pneumonia. 2: Moderate right pleural effusion. A CT of his chest without contrast was ordered and showed 1. Left internal jugular central venous catheter with distal tip in the midsuperior vena cava. 2. Interval increase in size of a now moderate to large right pleural effusion with multiple right-sided pleural-based nodules and masses consistent with metastatic disease. 3. 1.8 x 1.3 cm perihilar mass in the lingula also consistent with metastatic disease. Will plan to hold his Warfarin tonight and order an ultrasound guided thoracentensis for tomorrow morning. His INR is 2.3 and per radiology, it needs to be around 1.5. Will keep him NPO at midnight and repeat PT/INR in the am. This was all explained to the patient in great detail and that the fluid will most likely return. He stated understanding and would like to proceed. 07/01/19: His INR today was 2.0 and an additional dose of Vitamin K was given. His INR has decreased to 1.6 and he will be having the ultrasound guided thoracentesis at 1330. (2) Respiratory distress, acute: Code(s): R06.03 - Acute respiratory distress Status: Acute Assessment and Plan: 06/29/19: Patient reports that he was discharged from [facility] on 06/25/19. Per the notes, he was discharged with home health as well as Home O2. Per the patient he never did receive the O2. His lung sounds are course, but his chest x-ray showed an unchanged moderate pleural effusion and a pleural based nodule lateral right midlung zone which based on prior CT findings most concerning for metastatic disease. He is on 2L of O2 and his CO2 is noted to be 12. On 06/25/19 it was 15, will repeat labs in the am. 06/30/19: Patient's O2 saturation has been stable on 2L. Will plan to do a CT of his chest due to his worsening congestion. Per the notes at [facility], the patient was treated recently with Rocephin and Azithromycin. 07/01/19: Patient is now on room air and has not been wearing his O2. He was discharged with home O2 from [facility] and the patient reports that he turned away the company when they came to his house because he did not think he needed. (3) Acute exacerbation of CHF (congestive heart failure): Qualifiers: Heart failure type: unspecified Qualified Code(s): I50.9 - Heart failure, unspecified Code(s): I50.9 - Heart failure, unspecified Status: Acute Assessment and Plan: 06/29/19: BNP is noted to be 20,100. He is on Lasix 20 mg PO daily and has 3-4+ lower extremity pitting edema. Will plan to give the patient IV Lasix X 1 and albumin today. An echo from May shows and EF of 35-40%. Will plan to continue his Metoprolol and consider a cardiology consult in the morning depending on how aggressive the patient wants his treatment to be. 06/30/19: Patient's echocardiogram showed an EF of 50-55% with Grade 1 Diastolic heart failure. His lower extremity edema has improved and will resume Lasix 20 mg daily until seen by nephrology. 07/01/19: Patient is not in acute exacerbation and his elevate BNP is most likely the result of his moderate to large pleural effusion. Will continue Lasix 20 mg daily. (4) Renal cell carcinoma: Qualifiers: Laterality: unspecified laterality Qualified Code(s): C64.9 - Malignant neoplasm of unspecified kidney, except renal pelvis Code(s):
[2019-07-01] MEDS: METOPROLOL TARTRATE 50 MG TAB PO ×2 (09:06→21:04)
[2019-07-01] MEDS: FUROSEMIDE 20 MG TABLET PO (09:06)
[2019-07-01] MEDS: PANTOPRAZOLE 40 MG TABLET PO (09:06)
[2019-07-01] MEDS: POLYSACCHARIDE IRON COMPLEX 150 MG CAPSULE PO (09:07)
[2019-07-01] MEDS: DORNASE ALFA INH SOLN 1 MG/ML 2.5 ML AMP 2.5 MG INHALATION ×2 (09:14→19:56)
[2019-07-01] MEDS: ALPRAZOLAM 0.5 MG TABLET 1 MG PO (09:25)
[2019-07-01 12:04] LABS: INR 1.6; Prothrombin Time 18.4 Seconds (11.1-14.7)
[2019-07-01 12:05] LABS: Partial Thromboplastin Time 56.9 SECONDS (22.3-36.8)
--- NOTE | 2019-07-01 12:53 | PCOTNOTE ---
Attempted to see patient this pm, however patient refused. I'm gonna stink all day. Pt refused UE exercises stating I don't feel like it. Pt answered ringing cell phone stating, There's about to be a fight. Pt participated in aggravated phone call with heavy foul language regarding pending testing and care after discharge.
[2019-07-01] MEDS: ASPIRIN 81 MG CHEWABLE TABLET PO (15:24)
[2019-07-01] MEDS: MIRTAZAPINE 15 MG TABLET PO (21:04)
[2019-07-01] MEDS: TEMAZEPAM 15 MG CAPSULE PO (21:08)
[2019-07-01] MEDS: ALPRAZOLAM 0.5 MG TABLET PO (21:08)
--- NOTE | 2019-07-01 21:20 | PC.NURSE ---
Entered patients room due to bed alarm going off. He was standing on the side of the bed started to cuss and yell at me as I entered the room. Stated Where the fuck have you been, outside sucking someone's surinder? I told him that was inappropriate. I asked him what he was needing and he continued to be verbally aggressive and cussing. After a moment I asked again, what he was needing. He stated for you to fuck off. I asked if he wanted his night time medication or if he was refusing it. I could always send another nurse in and he stated that's what he has been waiting for. I left to get the patients pain medicine and Xanax upon returning he said I'm sorry baby, you're not the one dying, I am. I told him that i understand and I apologize for his situation but it was inappropriate to talk to someone like that and we do not tolerate that behavior. He stated You're alexandro these windows don't open or I would throw your ass out of it. Everyone in this hospital is a fucking nut case I asked the patient if there was anything else i could get him, he responded no so I turned the bed alarm on and exited the room. Will bring a second person upon entering his room in the future. The WET PROCESS ASSISTANT [employer] M[employer]ER informed me that the patient had been cussing while she was in there doing vitals calling everyone a bitch and being very inappropriate.
[2019-07-02] VITALS (16 sets, daily range): BP systolic 120–153; BP diastolic 69–97; PULSE 73–90; RESP 15–22; TEMP 36.2–36.9; O2SAT 90–100
[2019-07-02 00:42] LABS: Creatinine Urine 71.3 mg/dL
[2019-07-02 00:52] LABS: Creatinine 24 Hour Urine 0.5 gm/24 (1.0-2.0); Total Volume 24 Hour Urine 800 ml
[2019-07-02] MEDS: ALBUTEROL SULFATE NEB 2.5 MG/0.5 ML INH INHALATION ×2 (01:41→09:44)
[2019-07-02] MEDS: IPRATROPIUM BR 0.02% INH SOLN 0.5 MG/2.5 ML VIAL INHALATION ×2 (01:41→09:45)
[2019-07-02] MEDS: ONDANSETRON INJ 4 MG/2 ML VIAL IV PUSH (06:42)
[2019-07-02 06:48] LABS: Hematocrit 27.1 % (42.0-52.0); Hemoglobin 8.1 g/dL (14.0-18.0); Mean Corpuscular HGB Conc 29.9 g/dl (32-36); Mean Corpuscular Hemoglobin 25.8 pg (26-34); Mean Corpuscular Volume 86.3 fl (80-100); Mean Platelet Volume 8.7 fl (7.4-10.4); Platelet Count Result 311 k/mm3 (150-375); Red Blood Count 3.14 M/mm3 (4.6-6.20); Red Cell Distribution Width 20.6 % (11.5-14.5)
[2019-07-02 06:59] LABS: Albumin Level 2.6 g/dL (3.5-5.1); Blood Urea Nitrogen 29 mg/dL (9-20); Calcium 8.4 mg/dL (8.4-10.2); Carbon Dioxide 17 mmol/L (22-30); Chloride 111 mmol/L (98-107); Estimated CRCL calculation 27 ml/min; Estimated Glomerular Filt Rate 22; Glucose 109 mg/dL (75-110); Phosphorus 3.7 mg/dL (2.5-4.5); Potassium 4.2 mmol/L (3.4-5.0); Sodium 137 mmol/L (137-145)
[2019-07-02 07:02] LABS: INR 1.3; Prothrombin Time 16.1 Seconds (11.1-14.7)
--- NOTE | 2019-07-02 07:18 | WPDHPUPDATE1 ---
History and Physical Update Update Date/Time: 07/02/19 07:18 History and Physical has been reviewed, including an updated exam of the patient. (exam: Patient is cachectic, he has a left Allan line with 3 lumens. Since his history and physical he has had his Coumadin stopped and he now has an INR that was 1.6 yesterday and is 1.3 today.. This was so that he could have a thoracentesis on the right chest which was done yesterday with 1000 cubic centimeters out. He states he is breathing easier. He is Augustina at a 30 degree angle head up with no shortness of breath. Who is actually on room air when I entered the room today. I have been consulted to place a port to use for immune therapy for his stage IV metastatic renal cell carcinoma. There are changes in the patient's condition. This condition has changed in that he is now off the Coumadin, he is breathing more easily than admission. He also has had a medical workup. He has had Oncology consultation and plans to follow up with Dr. Zhao. Risks, benefits, and alternatives of a placement of a port (Port-A-Cath) to be use for medical oncologic treatment for his metastatic renal cell carcinoma have been discussed and questions answered. Patient realizes that he will be at a higher risk for bleeding complications in that he will need to be on anticoagulation soon after placement of the port. since the plan will be to discharge the patient in the near future will not leave the port accessed. Will use a ALLAN line until day of discharge during the hospital. Patient agrees to proceed with procedure. Since his David line is on the left we will try to place his low-profile port at the right IJ or subclavian site. CORA
[2019-07-02] MEDS: LACTATED RINGERS 1,000 ML 125 ML IV CONT (08:07)
[2019-07-02] MEDS: BENZOCAINE/MENTHOL (*BKC) 18 EA LOZENGE 1 LOZENGE PO (08:09)
--- NOTE | 2019-07-02 08:39 | PM.PNNEP ---
Progress Note: A&P Assessment and Plan (1) CKD (chronic kidney disease) stage 4, GFR 15-29 ml/min: Code(s): N18.4 - Chronic kidney disease, stage 4 (severe) Status: Acute Assessment and Plan: Chronic kidney disease Due to hypertension and solitary kidney. No evidence of pre renal azotemia. Renal ultrasound shows no hydronephrosis. Creatinine is stable. (2) HTN (hypertension): Qualifiers: Hypertension type: essential hypertension Qualified Code(s): I10 - Essential (primary) hypertension Code(s): I10 - Essential (primary) hypertension Status: Acute Assessment and Plan: Blood pressure running 130 to 150. (3) Anemia: Qualifiers: Anemia type: unspecified type Qualified Code(s): D64.9 - Anemia, unspecified Code(s): D64.9 - Anemia, unspecified Status: Acute Assessment and Plan: Hemoglobin is low at 8.1. Check iron levels. (4) Acute exacerbation of CHF (congestive heart failure): Qualifiers: Heart failure type: unspecified Qualified Code(s): I50.9 - Heart failure, unspecified Code(s): I50.9 - Heart failure, unspecified Status: Acute Assessment and Plan: The patient has a diagnosis of congestive heart failure. His echocardiogram shows normal LV function but there is some diastolic dysfunction. The patient has pleural effusions and edema. His albumin could be contributing to this. He does not have much urinary protein. (5) Renal cell carcinoma: Qualifiers: Laterality: unspecified laterality Qualified Code(s): C64.9 - Malignant neoplasm of unspecified kidney, except renal pelvis Code(s): C64.9 - Malignant neoplasm of unspecified kidney, except renal pelvis Status: Acute Assessment and Plan: Nephrectomy has been done. Hematology is on the case and deciding how to approach the metastatic aspect. (6) Anorexia: Code(s): R63.0 - Anorexia Status: Acute Assessment and Plan: He lost 100 pounds over the last few months. He has nausea and poor appetite. Cancer probably has something to do with this as well. He is on pantoprazole Subjective Interval history: Patient is feeling about the same. he had a thoracentesis yesterdahy He is going to get a tunneled IV today. Review of Systems Cardiovascular: Cardiovascular: Reports no additional cardiovascular complaints Respiratory: Respiratory: Reports no additional respiratory complaints Gastrointestinal: Gastrointestinal: Reports no additional gastrointestinal complaints Genitourinary: Genitourinary: Reports no additional male genitourinary complaints Exam Narrative: Exam Narrative: Well developed well-nourished in no acute distress Lungs decreased breath sounds at the bases Heart regular rate and rhythm without rub Abdomen bowel sounds positive soft nontender Extremities 1-2+ edema Skin no rash or subcu nodules Objective Data Vital Signs Vital Signs: Vital Signs - 24 hr 07/01/19 09:06 07/01/19 09:15 07/01/19 09:18 Temperature Pulse Rate 79 83 Respiratory Rate 18 Blood Pressure Pulse Oximetry 99 07/01/19 09:37 07/01/19 14:47 07/01/19 14:53 Temperature Pulse Rate 88 72 83 Respiratory Rate 18 16 20 Blood Pressure 149/87 H Pulse Oximetry 93 L 07/01/19 14:55 07/01/19 15:09 07/01/19 19:45 Temperature 36.4 C L Pulse Rate 88 85 74 Respiratory Rate 16 18 16 Blood Pressure 148/81 H Pulse Oximetry 99 07/01/19 19:55 07/01/19 22:00 07/02/19 01:30 Temperature 36.7 C Pulse Rate 78 95 79 Respiratory Rate 16 22 H 16 Blood Pressure 146/91 H Pulse Oximetry 96 95 07/02/19 01:40 07/02/19 06:00 Temperature 36.6 C Pulse Rate 75 84 Respiratory Rate 16 22 H Blood Pressure 144/77 H Pulse Oximetry 96 Intake/Output Intake/Output: Intake & Output 06/29/19 06/30/19 07/01/19 07/02/19 23:59 23:59 23:59 23:59 Intake Total 296
[2019-07-02] MEDS: METOPROLOL TARTRATE 50 MG TAB PO (09:04)
[2019-07-02] MEDS: POLYSACCHARIDE IRON COMPLEX 150 MG CAPSULE PO (09:04)
[2019-07-02] MEDS: PANTOPRAZOLE 40 MG TABLET PO (09:04)
--- NOTE | 2019-07-02 09:07 | PM.IMPN ---
Progress Note: A&P Assessment and Plan (1) Pleural effusion: Code(s): J90 - Pleural effusion, not elsewhere classified Status: Acute Assessment and Plan: 06/30/19: Patient's chest x-ray showed 1: Right perihilar airspace disease which may represent atelectasis, asymmetric edema or pneumonia. 2: Moderate right pleural effusion. A CT of his chest without contrast was ordered and showed 1. Left internal jugular central venous catheter with distal tip in the midsuperior vena cava. 2. Interval increase in size of a now moderate to large right pleural effusion with multiple right-sided pleural-based nodules and masses consistent with metastatic disease. 3. 1.8 x 1.3 cm perihilar mass in the lingula also consistent with metastatic disease. Will plan to hold his Warfarin tonight and order an ultrasound guided thoracentensis for tomorrow morning. His INR is 2.3 and per radiology, it needs to be around 1.5. Will keep him NPO at midnight and repeat PT/INR in the am. This was all explained to the patient in great detail and that the fluid will most likely return. He stated understanding and would like to proceed. 07/01/19: His INR today was 2.0 and an additional dose of Vitamin K was given. His INR has decreased to 1.6 and he will be having the ultrasound guided thoracentesis at 1330. 07/02/19: Patient's had 1000 ml removed from his right lung yesterday. Her remains on 2L of O2, but reports that he is feeling well. A walking O2 sat has been ordered to be done before discharge. (2) Respiratory distress, acute: Code(s): R06.03 - Acute respiratory distress Status: Acute Assessment and Plan: 06/29/19: Patient reports that he was discharged from [facility] on 06/25/19. Per the notes, he was discharged with home health as well as Home O2. Per the patient he never did receive the O2. His lung sounds are course, but his chest x-ray showed an unchanged moderate pleural effusion and a pleural based nodule lateral right midlung zone which based on prior CT findings most concerning for metastatic disease. He is on 2L of O2 and his CO2 is noted to be 12. On 06/25/19 it was 15, will repeat labs in the am. 06/30/19: Patient's O2 saturation has been stable on 2L. Will plan to do a CT of his chest due to his worsening congestion. Per the notes at [facility], the patient was treated recently with Rocephin and Azithromycin. 07/01/19: Patient is now on room air and has not been wearing his O2. He was discharged with home O2 from [facility] and the patient reports that he turned away the company when they came to his house because he did not think he needed. 07/02/19: Walking O2 has been ordered. (3) Renal cell carcinoma: Qualifiers: Laterality: unspecified laterality Qualified Code(s): C64.9 - Malignant neoplasm of unspecified kidney, except renal pelvis Code(s): C64.9 - Malignant neoplasm of unspecified kidney, except renal pelvis Status: Acute Assessment and Plan: 06/29/19: Patient has nephrectomy last year at [facility]. He never followed up as an outpatient. He was scheduled to have an appointment with Dr. Llanos on 06/28/19, but did not make it to the appointment due to being here. Dr. Zhao was consulted in the ER. 06/30/19: Dr. Zhao is planning on seeing him as an outpatient and getting a PET scan and then starting immunotherapy. Originally, a port was going to be placed, but Dr. Chavira and Dr. Zhao have discussed waiting until he is being followed up as an outpatient and for now will have a JACC line placed. 07/01/19: The patient will be following up with Dr. Zhao within one week of discharge and have
[2019-07-02] MEDS: DORNASE ALFA INH SOLN 1 MG/ML 2.5 ML AMP 2.5 MG INHALATION (09:47)
--- NOTE | 2019-07-02 11:27 | WPDANESEPPF ---
Anes - Initial Pre Proc Eval Procedure: Operation Date: 07/02/19 12:00 Proposed Procedures p Insertion Marcos Cath - Jason Chavira MD Date/Time: 07/02/19 11:27 Surgeon: Paloma Caldera DO Pre Op Diagnosis: CHF exacerbation,metastatic cancer Patient Data Age: 58 Gender: M Height: 6 ft Weight: 75.5 kg Last Vital Signs Temp 98 F 07/02/19 06:00 Pulse 78 07/02/19 09:56 Resp 16 07/02/19 09:56 BP 144/77 H 07/02/19 06:00 Pulse Ox 95 07/02/19 09:47 Allergies Allergy/AdvReac Type Severity Reaction Status Date / Time No Known Drug Allergies Allergy Unknown Verified 07/02/19 11:23 Home Medications Medication Instructions Recorded Confirmed Type Coumadin PO 06/29/19 History aspirin 81 mg PO DAILY 06/29/19 06/29/19 History furosemide 20 mg PO DAILY 06/29/19 06/29/19 History metoprolol tartrate 50 mg PO BID 06/29/19 06/29/19 History mirtazapine 15 mg PO HS 06/29/19 06/29/19 History omeprazole 20 mg PO DAILY 06/29/19 06/29/19 History polysaccharide iron complex 1 mg PO DAILY 06/29/19 06/29/19 History [Ferrex 150] temazepam 1 mg PO HS 06/29/19 06/29/19 History Laboratory Tests 06/30/19 07/01/19 07/02/19 21:13 11:43 06:40 WBC RBC Hgb Hct MCV MCH MCHC RDW Plt Count MPV PT 18.4 Seconds H Seconds 16.1 Seconds H Seconds (11.1-14.7) (11.1-14.7) INR 1.6 1.3 APTT 56.9 SECONDS H SECONDS (22.3-36.8) Sodium Potassium Chloride Carbon Dioxide BUN Creatinine Estim Creat Clear Calc Estimated GFR Glucose Calcium Phosphorus Albumin Ur 24 Hour Volume 800 ml ml Urine Creatinine 71.3 mg/dL mg/dL Ur Creatinine 24 Hour 0.5 gm/24 L gm/24 (1.0-2.0) 07/02/19 07/02/19 06:40 06:40 WBC 8.0 K/mm3 K/mm3 (4.5-10.0) RBC 3.14 M/mm3 L M/mm3 (4.6-6.20) Hgb 8.1 g/dL L g/dL (14.0-18.0) Hct 27.1 % L % (42.0-52.0) MCV 86.3 fl fl (80-100) MCH 25.8 pg L pg (26-34) MCHC 29.9 g/dl L g/dl (32-36) RDW 20.6 % H % (11.5-14.5) Plt Count 311 k/mm3 k/mm3 (150-375) MPV 8.7 fl fl (7.4-10.4) PT INR APTT Sodium 137 mmol/L mmol/L (137-145) Potassium 4.2 mmol/L mmol/L (3.4-5.0) Chloride 111 mmol/L H mmol/L (98-107) Carbon Dioxide 17 mmol/L L mmol/L (22-30) BUN 29 mg/dL H mg/dL (9-20) Creatinine 2.90 mg/dL H mg/dL (0.7-1.3) Estim Creat Clear Calc 27 ml/min ml/min Estimated GFR 22 L (59 - ) Glucose 109 mg/dL mg/dL (75-110) Calcium 8.4 mg/dL mg/dL (8.4-10.2) Phosphorus 3.7 mg/dL mg/dL (2.5-4.5) Albumin 2.6 g/dL L g/dL (3.5-5.1) Ur 24 Hour Volume Urine Creatinine Ur Creatinine 24 Hour Patient hx anesthesia problems: none Family hx anesthesia problems: none [facility] Past Medical History Medical History Acute exacerbation of CHF (congestive heart failure) (Acute) Anxiety and depression (Acute) CKD (chronic kidney disease) stage 4, GFR 15-29 ml/min (Acute) HTN (hypertension) (Acute) Renal cell carcinoma (Acute) Surgical History Surgical History History of nephrectomy (Acute) Family History Family History Father Acute myocardial infarction Cancer Chronic obstructive pulmonary disease Mother Acute myocardial infarction Cancer Diabetes mellitus Sibling Cerebrovascular accident Diabetes mellitus Social History Social History (Reviewed 06/30/19 @ 17:23 by Feliz Candelario
--- NOTE | 2019-07-02 11:31 | SUR.PREOP ---
1110 PATIENT BROUGHT TO PREOP PER BED. TRIPLE LUMEN LT NECK INTACT. SL 20 GA RT WRIST, FLUSHED LINE AND CONNECTED 1000ML LR AT KVO. NO REDNESS OR SWELLING TO SITE. PATIENT ON O2 2L NC.
[2019-07-02] MEDS: LACTATED RINGERS 1,000 ML 30 ML IV CONT (11:49)
[2019-07-02] MEDS: BUPIVACAINE/EPINEPHRINE 0.5% 30 ML VIAL INFILTRATE (12:42)
--- NOTE | 2019-07-02 12:50 | SUR.OPER ---
see physician notes for implant information
--- NOTE | 2019-07-02 13:27 | PCPTNOTE ---
Attempted to see Pt for morning therapy session@ 11:30am Pt was in procedure. Will attempt again. Returned to attempt therapy again @13:25 Pt was still in a procedure.
--- NOTE | 2019-07-02 13:37 | PCDIET ---
Nutrition Follow-Up Complete: Inadequate oral intake R/T poor appetite and cancer as evidence by 81% of UBW PO intake of meals and supplements at 50% or greater to halt further wt loss Goal: continue with same goal. Pt current nutrition is . Nutrition recommendation: Last recorded weight is 75.5 kg. Bowel Motility: Labs Reviewed: Meds Noted: Additional Notes: Pt was out of the room at the time of visit. Pt is currently NPO status, dinner the past two nights intake was 90-100% of meal tray. RN stated pt is likely discharging later this evening. Will continue to monitor while admitted. po intake, wt, labs every three days
[2019-07-02] MEDS: ALPRAZOLAM 0.5 MG TABLET PO (15:47)
--- NOTE | 2019-07-02 16:45 | PCOTNOTE ---
The patient treatment was not able to be completed on [07/02/2019]. Will plan to continue treatment per plan of care.
[2019-07-02] MEDS: WARFARIN (*PBKC) 5 MG TABLET PO (16:47)
[2019-07-02] MEDS: FUROSEMIDE 20 MG TABLET PO (16:47)
--- NOTE | 2019-07-02 17:15 | PM.DS ---
DS: Diagnosis Admitting Diagnosis Admitting Diagnosis: Heart failure, unspecified Discharge Diagnosis (1) Pleural effusion: Code(s): J90 - Pleural effusion, not elsewhere classified Status: Acute Assessment and Plan: 06/30/19: Patient's chest x-ray showed 1: Right perihilar airspace disease which may represent atelectasis, asymmetric edema or pneumonia. 2: Moderate right pleural effusion. A CT of his chest without contrast was ordered and showed 1. Left internal jugular central venous catheter with distal tip in the midsuperior vena cava. 2. Interval increase in size of a now moderate to large right pleural effusion with multiple right-sided pleural-based nodules and masses consistent with metastatic disease. 3. 1.8 x 1.3 cm perihilar mass in the lingula also consistent with metastatic disease. Will plan to hold his Warfarin tonight and order an ultrasound guided thoracentensis for tomorrow morning. His INR is 2.3 and per radiology, it needs to be around 1.5. Will keep him NPO at midnight and repeat PT/INR in the am. This was all explained to the patient in great detail and that the fluid will most likely return. He stated understanding and would like to proceed. 07/01/19: His INR today was 2.0 and an additional dose of Vitamin K was given. His INR has decreased to 1.6 and he will be having the ultrasound guided thoracentesis at 1330. 07/02/19: Patient's had 1000 ml removed from his right lung yesterday. Her remains on 2L of O2, but reports that he is feeling well. A walking O2 sat has been ordered to be done before discharge. (2) Respiratory distress, acute: Code(s): R06.03 - Acute respiratory distress Status: Acute Assessment and Plan: 06/29/19: Patient reports that he was discharged from [facility] on 06/25/19. Per the notes, he was discharged with home health as well as Home O2. Per the patient he never did receive the O2. His lung sounds are course, but his chest x-ray showed an unchanged moderate pleural effusion and a pleural based nodule lateral right midlung zone which based on prior CT findings most concerning for metastatic disease. He is on 2L of O2 and his CO2 is noted to be 12. On 06/25/19 it was 15, will repeat labs in the am. 06/30/19: Patient's O2 saturation has been stable on 2L. Will plan to do a CT of his chest due to his worsening congestion. Per the notes at [facility], the patient was treated recently with Rocephin and Azithromycin. 07/01/19: Patient is now on room air and has not been wearing his O2. He was discharged with home O2 from [facility] and the patient reports that he turned away the company when they came to his house because he did not think he needed. 07/02/19: Walking O2 has been ordered. (3) Renal cell carcinoma: Qualifiers: Laterality: unspecified laterality Qualified Code(s): C64.9 - Malignant neoplasm of unspecified kidney, except renal pelvis Code(s): C64.9 - Malignant neoplasm of unspecified kidney, except renal pelvis Status: Acute Assessment and Plan: 06/29/19: Patient has nephrectomy last year at [facility]. He never followed up as an outpatient. He was scheduled to have an appointment with Dr. Llanos on 06/28/19, but did not make it to the appointment due to being here. Dr. Zhao was consulted in the ER. 06/30/19: Dr. Zhao is planning on seeing him as an outpatient and getting a PET scan and then starting immunotherapy. Originally, a port was going to be placed, but Dr. Chavira and Dr. Zhao have discussed waiting until he is being followed up as an outpatient and for now will have a JACC line placed. 07/01/19: The patient will be
--- NOTE | 2019-07-02 21:47 | PM.PROC ---
Date of procedure: 07/02/19 Pre-op diagnosis: CHF exacerbation,metastatic cancer Poor peripheral vascular access Post-op diagnosis: same Procedure performed: placement Port-A-Cath ( right IJ approach ) Description of procedure: Patient was seen and marked in his hospital room prior to coming to the OR. Patient was brought to the operating room. He was placed supine on the operating table and general IV sedation was induced. The nurse veterans contact representative provided oxygen and IV sedation. Patient's head was carefully turned to the left side while in the supine position and the patient's entire neck and anterior chest on both sides was prepped and draped in the usual sterile fashion. Following this the appropriate time-out was completed confirming procedure and patient. We confirmed that all the needed equipment was present in the room. Following this the ultrasound probe was draped into the field and using the probe we carefully identified the carotid artery and jugular vein on the right neck. I marked the skin directly over the Rt. internal jugular vein. Following this, using the continuous ultrasound guidance, a Cook needle was placed through the skin into this vein. I then was able to draw back good dark blood. Once this was completed a guidewire using a J-tip was advanced through the needle and then the needle and the guidewire cover were withdrawn. C-arm fluoroscopy was used to confirm that the guidewire was nicely in the venous system. Once this was confirmed with the C - arm I preceded on by making the pocket for the port on the patient's anterior right chest approximately 3 centimeters below the clavicle overlying the chest wall. Local anesthetic was infiltrated into the skin where there was a transverse incision marked out. Incision was made and we made a pocket inferior to the incision with just a little dissection superior. The low-profile port was tried in the pocket and seemed to fit well. Following this the catheter which had been placed on a tunneling device was tunneled from the port site on the anterior right chest up to the right neck where a small incision had been made with an #11 blade knife. Then the catheter was pulled through so that we would have 15 centimeters to put into the central venous system once the dilation took place. Following this we placed the dilator and sheath over the guidewire in the jugular vein and carefully dilated the tract into the central venous system. The guidewire and dilator were then removed, carefully covering the end of the sheath to prevent air embolus. The end of the catheter which had been cut off straight across and the tip checked was then inserted into the sheath and into the neck. I then carefully pulled the 2 arms of the tear-away sheath away as the faculty i on call medical assistant held the catheter in position with a DeBakey forceps. Following this we checked the position of the catheter with C-arm fluoroscopy confirming that the tip seemed to be in the distal superior vena cava near the junction with the right atrium. I felt that it was in good position and so the rest of the catheter was pulled down toward the feet into the port site. We then measured to the appropriate position to cut the catheter to attach it to the port stem. Then the connector sealing device for the catheter port was placed onto the catheter and then the catheter cut to the appropriate length and inserted onto the stem of the port. Then the connector was advanced onto the stem over the catheter sealing it to the port. A single 3- 0 Prolene suture was also used during this to suture the connector to the port and to the underlying musculature. Following this at one other site the port was sutured to the underlying musculature with the 3-0 Proline. Both prior to connecting the catheter to the port and then using a straight Natarajan needle following this connection, the port was aspirated of good dark blood and flushed with heparinized saline to keep the cathet
== END 2019-07-02 18:05 | disposition home health service (06) | DRG 194 ==
LOC: ANHED 21:14 → ANH2MED 23:55
PROVIDERS: Clinical Nurse Specialist; Internal Medicine Nephrology; Surgery; Admitting Provider Internal Medicine; Emergency Provider Emergency Medicine; Referring Provider Emergency Medicine; Visit Provider Family Medicine
PROC: 0JH60WZ Insertion of Totally Implantable Vascular Access Device into Chest Subcutaneous Tissue and Fascia, Open Approach (ICD-10-PCS; principal; 2019-07-02 12:00)
DX: I13.0 Hypertensive heart and chronic kidney disease with heart failure and stage 1 through stage 4 chronic kidney disease, or unspecified chronic kidney disease (principal); Z68.22 Body mass index [BMI] 22.0-22.9, adult; R64 Cachexia; Z90.5 Acquired absence of kidney; F41.8 Other specified anxiety disorders; N18.4 Chronic kidney disease, stage 4 (severe); I50.9 Heart failure, unspecified; Z87.891 Personal history of nicotine dependence; Z86.711 Personal history of pulmonary embolism; Z79.02 Long term (current) use of antithrombotics/antiplatelets; Z85.528 Personal history of other malignant neoplasm of kidney; R06.03 Acute respiratory distress; R63.0 Anorexia; D63.0 Anemia in neoplastic disease; D63.1 Anemia in chronic kidney disease; C78.7 Secondary malignant neoplasm of liver and intrahepatic bile duct; C78.00 Secondary malignant neoplasm of unspecified lung
CPT/HCPCS: 32555; 36415; 36556; 71045; 71046; 71250; 76775; 77001; 80053; 80069; 81003; 81050; 82570; 83605; 83880; 84156; 84300; 84484; 85025; 85027; 85610; 85730; 86140; 87040; 87185; 88305; 93005; 93306; 94618; 94640; 97161; 97165; A9270; C1751; C1788; J0131; J0690; J0692; J1100; J1644; J1940; J2405; J2704; J3010; J3370; J3430; J7030; J7120; P9047